=== PATIENT | male | born 1995 | race Caucasian/White ===

== ENCOUNTER 2016-07-15 06:30 | Emergency (ER) | payer OTHER ==
[2016-07-15 07:01] VITALS: BP 119/79; PULSE 65; TEMP 98.3; BMI 21.3
--- NOTE | 2016-07-15 07:22 | PDOC ---
History of Present Illness - General Chief Complaint: Pain, Acute Stated Complaint: KNEE PAIN Time Seen by Provider: 07/15/16 07:16 History Source: Patient Exam Limitations: No Limitations - History of Present Illness Initial Comments: 07/15/16 07:22 CHIEF COMPLAINT: Knee pain HISTORY OF PRESENT ILLNESS: This is an otherwise healthy 21 year old male who presents with right knee pain after "banging" his knee into a plastic structure when getting out of his car today. REVIEW OF SYSTEMS: GENERAL/CONSTITUTIONAL: No fever or chills. No weakness. No weight change. HEAD, EYES, EARS, NOSE AND THROAT: No change in vision. No ear pain or discharge. No sore throat. CARDIOVASCULAR: No chest pain or palpitations. RESPIRATORY: No cough, wheezing, or shortness of breath. GASTROINTESTINAL: No nausea, vomiting, diarrhea or constipation. GENITOURINARY: No dysuria, frequency, or change in urination. MUSCULOSKELETAL: See HPI. SKIN: No rash or easy bruising. NEUROLOGIC: No headache, vertigo, loss of consciousness, or loss of sensation. PSYCHIATRIC: No depression or anxiety. ENDOCRINE: No increased thirst. No abnormal weight change. HEMATOLOGIC/LYMPHATIC: No anemia, easy bleeding, or history of blood clots. ALLERGIC/IMMUNOLOGIC: No hives or skin allergy. No latex allergy. PHYSICAL EXAM: GENERAL: The patient is awake, alert, and fully oriented, in no acute distress. HEAD: Normal with no signs of trauma. ENT: Pupils equal, round and reactive to light, extraocular movements intact, sclera anicteric, conjunctiva clear. Neck supple. LUNGS: Clear to auscultation bilaterally. Normal excursion. No respiratory distress or use of accessory muscles. CV: RRR, S1/S2, no MRG. Cap refill < 2 sec. ABDOMEN: Soft, non-distended, non-tender. EXTREMITIES: Tenderness to right lateral knee- unable to extend completely, able to flex to 90. Unable to bear full weight. NEUROLOGICAL: Normal speech, normal gait. CN II-XII grossly intact. PSYCH: Normal mood, normal affect. SKIN: Warm, dry, normal turgor, no rashes or lesions noted. Past History - Past Medical History Allergies/Adverse Reactions: Allergies Allergy/AdvReac Type Severity Reaction Status Date / Time No Known Allergies Allergy Verified 07/15/16 07:01 Home Medications: Ambulatory Orders Naproxen [Naprosyn -] 500 mg PO BID #14 tablet 07/15/16 Tramadol HCl [Ultram] 50 mg PO HS PRN #5 tablet MDD 1 07/15/16 Asthma: Yes - Immunization History Immunization Up to Date: No - Psycho/Social/Smoking Cessation Hx Anxiety: No Suicidal Ideation: No Smoking History: Former smoker Have you smoked in the past 12 months: Yes Number of Cigarettes Smoked Daily: 2 If you are a former smoker, when did you quit?: 3 months Information on smoking cessation initiated: Yes 'Breaking Loose' booklet given: 03/30/14 Hx Alcohol Use: No Drug/Substance Use Hx: No Substance Use Type: Marijuana *Physical Exam - Vital Signs Last Vital Signs Temp Pulse Resp BP Pulse Ox 98.3 F 65 16 119/79 100 07/15/16 06:55 07/15/16 06:55 07/15/16 06:55 07/15/16 06:55 07/15/16 06:55 ED Treatment Course - RADIOLOGY Radiology Studies Ordered: Category Date Time Status KNEE 3 POS-RIGHT [RAD] Stat Radiology 07/15/16 07:21 Ordered Medical Decision Making - Medical Decision Making 07/15/16 08:56 A/P: 21 year old male with knee injury; limited ROM and weight-bearing. -Toradol 30mg IM for pain -CXR: no fracture or subluxation noted -Knee brace and crutches given -Ortho referral made -RICE therapy reviewed *DC/Admit/Observation/Transfer Diagnosis at time of Disposition: Right knee sprain Qualifiers: Encounter type: initial encounter Involved ligament of knee: unspecified ligament Qualified Code(s): S83.91XA - Sprain of unspecified site of right knee , initial encounter - Discharge Dispostion Disposition: HOME Condition at time of disposition: Fair Decision to Admit order Date/Time: 07/15/16 08:07 - Prescriptions Prescriptions: Naproxen [Naprosyn -] 500 mg PO BID #14 tablet Tramadol HCl [Ultram] 50 mg PO HS PRN #5 tablet MDD 1 PRN Reason: Severe Pain - Referrals Referrals: Vidal Mallory MD [Staff Physician] - 14 days (Orthopedics: follow up if symptoms persist) - Patient Instructions Printed Discharge Instructions: DI for Knee Sprain Additional Instructions: -Rest and apply ice for 15 minutes at a time 5 times daily -Wear the knee brace and use the crutches supplied to limit weight-bearing -Take Naproxen as prescribed and Tramadol at night for severe pain -Follow up with an orthopedist for further evaluation if not improving
[2016-07-15] MEDS ORDERED: KETOROLAC TROMETHAMINE 30 MG/1 ML VIAL IM ONE (08:04)
[2016-07-15] MEDS ORDERED: KETOROLAC TROMETHAMINE 30 MG/1 ML VIAL ONE (08:19)
== END 2016-07-15 08:24 | disposition home or self-care (01) ==
LOC: JER 06:30
PROC: 3E0233Z Introduction of Anti-inflammatory into Muscle, Percutaneous Approach (ICD-10-PCS; principal; 2016-07-15)
PROC: 2W3LX3Z Immobilization of Right Lower Extremity using Brace (ICD-10-PCS; 2016-07-15)
DX: S83.8X1A Sprain of other specified parts of right knee, initial encounter (principal); W22.8XXA Striking against or struck by other objects, initial encounter; V48.4XXA Person boarding or alighting a car injured in noncollision transport accident, initial encounter; Y92.414 Local residential or business street as the place of occurrence of the external cause; Y93.89 Activity, other specified
CPT/HCPCS: 29530; 73562-TC-RT; 96372; 99282-25

== ENCOUNTER 2017-06-26 11:12 | Emergency (ER) | payer OTHER ==
[2017-06-26 11:26] VITALS: BP 112/75; PULSE 82; TEMP 97.9; BMI 24.4
--- NOTE | 2017-06-26 11:28 | PDOC ---
History of Present Illness <Nadeem Obregon - Last Filed: 06/26/17 12:16> - History of Present Illness Initial Comments: 06/26/17 11:56 Mr. Craft is a 22 yo male w/ no pmh who presents complaining of right testicular pain since he woke up this morning. He reports after waking up he urinated at which time he experienced burning as well as noticed tenderness to his right testicle. He denies any prior surgeries or medical problems of the groin and was born with completely normal testicles as far as he knows. The patient denies chest pain, shortness of breath, headache and dizziness. Denies fever, chills, nausea, vomit, diarrhea and constipation. Denies frequency , urgency and hematuria. Allergies: NKDA <Conrado Estrada - Last Filed: 06/26/17 13:36> - General Chief Complaint: Pain, Acute Stated Complaint: PELVIC PAIN Time Seen by Provider: 06/26/17 11:28 Past History <Nadeem Obregon - Last Filed: 06/26/17 12:16> - Past Medical History Asthma: Yes COPD: No - Immunization History Immunization Up to Date: No - Suicide/Smoking/Psychosocial Hx Smoking History: Former smoker Have you smoked in the past 12 months: Yes Number of Cigarettes Smoked Daily: 2 If you are a former smoker, when did you quit?: 3 months Information on smoking cessation initiated: Yes 'Breaking Loose' booklet given: 06/26/17 Hx Alcohol Use: No Drug/Substance Use Hx: Yes Substance Use Type: Marijuana <Conrado Estrada - Last Filed: 06/26/17 13:36> - Past Medical History Allergies/Adverse Reactions: Allergies Allergy/AdvReac Type Severity Reaction Status Date / Time No Known Allergies Allergy Verified 06/26/17 11:22 Home Medications: Ambulatory Orders Naproxen [Naprosyn -] 500 mg PO BID #14 tablet 07/15/16 Tramadol HCl [Ultram] 50 mg PO HS PRN #5 tablet MDD 1 07/15/16 Review of Systems - Review of Systems Comments:: 06/26/17 12:01 GENERAL/CONSTITUTIONAL: No fever or chills. No weakness. HEAD, EYES, EARS, NOSE AND THROAT: No change in vision. No ear pain or discharge. No sore throat. CARDIOVASCULAR: No chest pain or shortness of breath RESPIRATORY: No cough, wheezing, or hemoptysis. GASTROINTESTINAL: No nausea, vomiting, diarrhea or constipation. GENITOURINARY: +Right testicular pain with dysuria as described. No frequency, or change in urination. MUSCULOSKELETAL: No joint or muscle swelling or pain. No neck or back pain. SKIN: No rash NEUROLOGIC: No headache, vertigo, loss of consciousness, or change in strength/ sensation. ENDOCRINE: No increased thirst. No abnormal weight change HEMATOLOGIC/LYMPHATIC: No anemia, easy bleeding, or history of blood clots. ALLERGIC/IMMUNOLOGIC: No hives or skin allergy. <Conrado Estrada - Last Filed: 06/26/17 13:36> *Physical Exam - Vital Signs Last Vital Signs Temp Pulse Resp BP Pulse Ox 97.9 F 82 18 112/75 99 06/26/17 11:22 06/26/17 11:22 06/26/17 11:22 06/26/17 11:22 06/26/17 11:22 <Nadeem Obregon - Last Filed: 06/26/17 12:16> - Vital Signs Last Vital Signs Temp Pulse Resp BP Pulse Ox 97.9 F 82 18 112/75 99 06/26/17 11:22 06/26/17 11:22 06/26/17 11:22 06/26/17 11:22 06/26/17 11:22 - Physical Exam Comments: 06/26/17 12:02 GENERAL: Awake, alert, and fully oriented, in no acute distress HEAD: No signs of trauma, normocephalic, atraumatic EYES: PERRLA, EOMI, sclera anicteric, conjunctiva clear ENT: Auricles normal inspection, hearing grossly normal, nares patent, oropharynx clear without exudates. Moist mucosa NECK: Normal ROM, supple, no lymphadenopathy, JVD, or masses LUNGS: No distress, speaks full sentences, clear to auscultation bilaterally HEART: Regular rate and rhythm, normal S1 and S2, no murmurs, rubs or gallops, peripheral pulses normal and equal bilaterally. ABDOMEN: Soft, nontender, normoactive bowel sounds. No guarding, no rebound. No masses EXTREMITIES: Normal inspection, Normal range of motion, no edema. No clubbing or cyanosis. NEUROLOGICAL: Cranial nerves II through XII grossly intact. Normal speech, normal gait, no focal sensorimotor deficits SKIN: Warm, Dry, normal turgor, no rashes or lesions noted. : Right testicle noted to have transverse lie and be elevated in comparison with left. Cremasteric reflex noted on left side. Initially absent on right; small motion visible after rotation of testicle in "open book" fashion. Patient reports some alleviation of pain with this movement as well. <Conrado Estrada - Last Filed: 06/26/17 13:36> ED Treatment Course - LABORATORY CBC & Chemistry Diagram: 06/26/17 13:10 06/26/17 13:10 <Conrado Estrada - Last Filed: 06/26/17 13:36> Medical Decision Making - Medical Decision Making 06/26/17 11:[address] James at 11:40, awaiting callback. 06/26/17 12:[address] James again at 11:55, awaiting callback. 06/26/17 12:[address] James regarding this patient. <Nadeem Obregon - Last Filed: 06/26/17 12:16> - Medical Decision Making 06/26/17 12:20 Mr. Craft is a 22 yo male w/ pmh as described who presents for evaluation of torsed testicle. Attempted manual reduction with some relief from symptoms. Patient sent to US for evaluation. Pre-op labs ordered. Consulted Dr. James for evaluation. 06/26/17 13:25 Scrotal US revealed no current evidence of torsion after detorsing efforts. Urology updated - will see patient on outpatient basis. App[facility] Patient verbalized agreement with plan and that he will follow-up. 06/26/17 13:35 Discharging to home. <Conrado Estrada - Last Filed: 06/26/17 13:36> *DC/Admit/Observation/Transfer <Nadeem Obregon - Last Filed: 06/26/17 12:16> <Conrado Estrada - Last Filed: 06/26/17 13:36> Diagnosis at time of Disposition: Testicular torsion - Discharge Dispostion Disposition: HOME - Referrals Referrals: Massimo James MD [Staff Physician] - - Patient Instructions Printed Discharge Instructions: Testicular Torsion Additional Instructions: Please follow-up as discussed at urology appointment tomorrow at [address] at 1pm. Return to ER immediately if any return of pain, fever, swelling , or difficulty urinating.
--- NOTE | 2017-06-26 12:01 | PDOC ---
Attending Attestation - Resident Resident Name: Conrado Estrada - ED Attending Attestation I have performed the following: I have examined & evaluated the patient, The case was reviewed & discussed with the resident, I agree w/resident's findings & plan, Exceptions are as noted - Medical Decision Making 06/26/17 11:35 22-year-old male with no significant past medical or surgical history presents the emergency department with sudden onset right testicular pain that woke him up from sleep. Vitals unremarkable. Exam of the right testicle with horizontal elevated lie, negative cremasteric reflex, and tender right testicle. Manual detorsion was performed by , pt reports improvement in pain but still has persistent pain. Now has mild cremasterics reflex. Urology has been consulted, we are waiting a callback. In the meantime patient has been walked over to scrotal ultrasound. When he returns we'll obtain blood work and give pain control. <Willow Marques - Last Filed: 06/26/17 11:55> - HPI HPI: 06/26/17 15:00 The patient is a 22 year old male with no significant PMH who presents to the emergency department with a sudden onset right testicle swelling and pain which woke him up from sleep approximately 2 hours prior to arrival. The patient reports being in his usual state of health prior to his right testicle swelling. The patient denies any recent trauma. He denies any previous symptoms prior to this morning. He denies any penile or testicular surgeries. Denies urinary symptoms of dysuria, hematuria, frequency. Allergies: NKA - Physicial Exam PE: 06/26/17 15:00 GENERAL: Awake, alert, and fully oriented, in no acute distress HEAD: No signs of trauma EYES: PERRLA, EOMI, sclera anicteric, conjunctiva clear ENT: Auricles normal inspection, hearing grossly normal, nares patent, oropharynx clear without exudates. Moist mucosa NECK: Normal ROM, supple, no lymphadenopathy, JVD, or masses LUNGS: Breath sounds equal, clear to auscultation bilaterally. No wheezes, and no crackles HEART: Regular rate and rhythm, normal S1 and S2, no murmurs, rubs or gallops ABDOMEN: Soft, nontender, normoactive bowel sounds. No guarding, no rebound. No masses : R testical with horizontal lie, elevated, initially with negative cremasteric relfex, after manual detorsion, +cremasteric reflex and imrpovement in pain. EXTREMITIES: Normal range of motion, no edema. No clubbing or cyanosis. No cords , erythema, or tenderness BACK: No midline spinal tenderness in cervical/thoracic/lumbar region NEUROLOGICAL: Normal speech, cranial nerves intact, negative pronator drift, 5/ 5 strength in all 4 extremities, normal sensation to light touch in all 4 extremities, normal cerebellar exam, normal gait, normal reflexes and tone SKIN: Warm, Dry, normal turgor, no rashes or lesions noted. - Medical Decision Making 06/26/17 11:[address] James at 11:40, awaiting callback. 06/26/17 12:[address] James again at 11:55, awaiting callback. 06/26/17 12:16 Dr. Estrada discussed case with Dr. James regarding this patient. <Nadeem Obregon - Last Filed: 06/26/17 15:00>
[2017-06-26 13:35] LABS: BASO % 0.6 % (0-2.0); EOS % 2.9 % (0-4.5); HEMATOCRIT 36.9 % (35.4-49); HEMOGLOBIN 12.8 GM/dL (11.7-16.9); LYMPH % 12.9 % (8-40); MCH 33.5 pg (25.7-33.7); MCHC 34.7 g/dl (32.0-35.9); MEAN CELL VOLUME 96.5 fl (80-96); MEAN PLT VOLUME 7.5 fl (7.5-11.1); MONO % 6.9 % (3.8-10.2); NEUT % 76.7 % (42.8-82.8); PLATELET COUNT 218 K/MM3 (134-434); RBC 3.82 M/mm3 (4.00-5.60); RDW 12.2 % (11.9-15.9); WHITE BLOOD COUNT 10.1 K/mm3 (4.0-10.0)
[2017-06-26 13:47] LABS: INR 0.95 (0.82-1.09); PROTHROMBIN TIME (PATIENT) 10.7 SEC (9.98-11.88)
[2017-06-26 13:59] LABS: ALBUMIN 3.6 g/dl (3.4-5.0); ANION GAP 8 (8-16); BLOOD UREA NITROGEN 11 mg/dL (7-18); CALCIUM 9.3 mg/dL (8.5-10.1); CHLORIDE 107 mmol/L (98-107); CO2 26 mmol/L (21-32); CREATININE 0.7 mg/dL (0.7-1.3); GLUCOSE,RANDOM 107 mg/dL (74-106); POTASSIUM 4.4 mmol/L (3.5-5.1); SGOT/AST 13 U/L (15-37); SGPT/ALT 27 U/L (12-78); SODIUM 141 mmol/L (136-145)
[2017-06-26 14:01] LABS: ALK PHOS 80 U/L (45-117); BILIRUBIN,TOTAL 0.4 mg/dL (0.2-1.0); TOT PROT 6.7 g/dl (6.4-8.2)
[2017-06-26 14:17] LABS: URINE APPEARANCE CLOUDY; URINE BILIRUBIN NEGATIVE (NEGATIVE); URINE BLOOD NEGATIVE (NEGATIVE); URINE COLOR YELLOW; URINE GLUCOSE (UA) NEGATIVE (NEGATIVE); URINE KETONE NEGATIVE (NEGATIVE); URINE LEUK ESTERASE NEGATIVE (NEGATIVE); URINE NITRITE NEGATIVE (NEGATIVE); URINE PROTEIN NEGATIVE (NEGATIVE); URINE UROBILINOGEN NEGATIVE mg/dL (0.2-1.0)
== END 2017-06-26 14:09 | disposition home or self-care (01) ==
LOC: JER 11:12
DX: N44.00 Torsion of testis, unspecified (principal)
CPT/HCPCS: 36415; 76870-TC; 80053; 81003; 83605; 85025; 85610; 86850; 86900; 86901; 87491; 87591; 99281-25

== ENCOUNTER 2018-03-17 20:13 | Emergency (ER) | payer OTHER ==
[2018-03-17 20:51] VITALS: BP 130/84; PULSE 95; TEMP 99.8; BMI 27.7
--- NOTE | 2018-03-17 20:59 | PDOC ---
Rapid Medical Evaluation Chief Complaint: Pain, Acute Time Seen by Provider: 03/17/18 20:56 Medical Evaluation: Allergies Allergy/AdvReac Type Severity Reaction Status Date / Time No Known Allergies Allergy Verified 06/26/17 11:22 Vital Signs Temp Pulse Resp BP Pulse Ox 99.8 F H 95 H 16 130/84 96 03/17/18 20:49 03/17/18 20:49 03/17/18 20:49 03/17/18 20:49 03/17/18 20:49 03/17/18 20:56 Patient c/o: low back pain and headache since this am, no other complaints Patient on brief exam: vss, no vertebral or cva tenderness Patient ordered for: none The patient will proceed to the ED Discharge Disposition - Diagnosis Low back pain - Referrals - Patient Instructions - Post Discharge Activity
[2018-03-17] MEDS ORDERED: ACETAMINOPHEN 500 MG TABLET (FP) PO ONE (21:54)
[2018-03-17] MEDS ORDERED: ACETAMINOPHEN 1000 MG/100 ML VIAL (NON FORMULARY) IVPB ONE (21:59)
[2018-03-17] MEDS ORDERED: SODIUM CHLORIDE 0.9% 500 ML INFUS.BAG IV ONE (21:59)
--- NOTE | 2018-03-17 22:01 | PDOC ---
History of Present Illness - General Chief Complaint: Pain, Acute Stated Complaint: PAIN Time Seen by Provider: 03/17/18 20:56 - History of Present Illness Initial Comments: 03/17/18 21:59 23-year-old male with abdominal pain low-grade fever and back pain times one day he also complains of bilateral styes on his eyes. Past History - Past Medical History Allergies/Adverse Reactions: Allergies Allergy/AdvReac Type Severity Reaction Status Date / Time No Known Allergies Allergy Verified 06/26/17 11:22 Home Medications: Ambulatory Orders NK [No Known Home Medication] 03/17/18 Asthma: Yes COPD: No - Immunization History Immunization Up to Date: No - Suicide/Smoking/Psychosocial Hx Smoking History: Never smoked Have you smoked in the past 12 months: No Number of Cigarettes Smoked Daily: 2 If you are a former smoker, when did you quit?: 3 months Information on smoking cessation initiated: No 'Breaking Loose' booklet given: 06/26/17 Hx Alcohol Use: No Drug/Substance Use Hx: No Substance Use Type: Marijuana Review of Systems - Review of Systems Constitutional: Yes: Chills, Fever, Malaise, Night Sweats HEENTM: Yes: See HPI, Eye Pain ABD/GI: Yes: Nausea Musculoskeletal: Yes: Back Pain *Physical Exam - Vital Signs Last Vital Signs Temp Pulse Resp BP Pulse Ox 99.8 F H 95 H 16 130/84 96 03/17/18 20:49 03/17/18 20:49 03/17/18 20:49 03/17/18 20:49 03/17/18 20:49 - Physical Exam Comments: 03/17/18 22:00 HEAD: NC/AT EYES: Conjuntiva clear Ears: Canals and TM's normal NOSE: No d/c THROAT: Moist mucous membrances, oral pharanx clear, uvula midline NECK: Supple without adenopathy CARDIAC: S1 S2 LUNGS: CTA Full and Equal breath sounds ABDOMEN: Right lower quadrant tenderness with rebound and guarding MS: Full ROM in all joints without edema NEUROLOGIC: No gross sensory or motor deficits, NVID SKIN: Normal color and temperature no lesions or rashes Moderate Sedation - Procedure Monitoring Vital Signs: Procedure Monitoring Vital Signs Temperature 99.8 F H 03/17/18 20:49 Pulse Rate 95 H 03/17/18 20:49 Respiratory Rate 16 03/17/18 20:49 Blood Pressure 130/84 03/17/18 20:49 O2 Sat by Pulse Oximetry (%) 96 03/17/18 20:49 Medical Decision Making - Medical Decision Making 03/17/18 22:00 Will get IV laboratory work and give IV fluids and Tylenol transfer to main ER *DC/Admit/Observation/Transfer Diagnosis at time of Disposition: Low back pain, Abdominal pain - Referrals - Patient Instructions - Post Discharge Activity
[2018-03-17 22:17] LABS: URINE APPEARANCE CLEAR; URINE BILIRUBIN NEGATIVE (<2.0 mg/dL); URINE COLOR YELLOW; URINE GLUCOSE (UA) NEGATIVE (NEGATIVE); URINE KETONE 2+ (NEGATIVE); URINE LEUK ESTERASE NEGATIVE (NEGATIVE); URINE NITRITE NEGATIVE (NEGATIVE); URINE PROTEIN NEGATIVE (NEGATIVE); URINE UROBILINOGEN 4.0 E.U/dl mg/dL (0.2-1.0)
[2018-03-17] MEDS ORDERED: ACETAMINOPHEN INJECTION 100 ML IVPB ONE (22:25)
[2018-03-17 22:28] LABS: EOS % 0.5 % (0-4.5); HEMATOCRIT 43.1 % (35.4-49); HEMOGLOBIN 15.6 GM/dL (11.7-16.9); LYMPH % 7.9 % (8-40); MCH 33.7 pg (25.7-33.7); MCHC 36.2 g/dl (32.0-35.9); MEAN CELL VOLUME 93.2 fl (80-96); MEAN PLT VOLUME 8.4 fl (7.5-11.1); MONO % 7.9 % (3.8-10.2); NEUT % 82.7 % (42.8-82.8); PLATELET COUNT 209 K/MM3 (134-434); RBC 4.62 M/mm3 (4.00-5.60); RDW 11.8 % (11.9-15.9); WHITE BLOOD COUNT 8.1 K/mm3 (4.0-10.0)
--- NOTE | 2018-03-17 22:29 | PDOC ---
*Physical Exam - Vital Signs Last Vital Signs Temp Pulse Resp BP Pulse Ox 99.8 F H 95 H 16 130/84 96 03/17/18 20:49 03/17/18 20:49 03/17/18 20:49 03/17/18 20:49 03/17/18 20:49 ED Treatment Course - LABORATORY CBC & Chemistry Diagram: 03/17/18 22:07 03/17/18 22:07 - ADDITIONAL ORDERS Additional order review: Laboratory Results 03/17/18 22:07 Urine Color Yellow Urine Appearance Clear Urine pH 7.0 Ur Specific Kinde 1.026 Urine Protein Negative Urine Glucose (UA) Negative Urine Ketones 2+ H Urine Blood Negative Urine Nitrite Negative Urine Bilirubin Negative Urine Urobilinogen 4.0 e.u/dl Ur Leukocyte Esterase Negative - RADIOLOGY Radiology Studies Ordered: Category Date Time Status ABDOMEN & PELVIS CT WITH CONTR [CT] Stat CT Scan 03/17/18 22:28 Ordered Medical Decision Making - Medical Decision Making 03/18/18 00:34 CTAP mesenteric lymph nodes. will give supportive care *DC/Admit/Observation/Transfer Diagnosis at time of Disposition: Mesenteric adenitis Low back pain Qualifiers: Chronicity: acute Back pain laterality: right Sciatica presence: without sciatica Qualified Code(s): M54.5 - Low back pain Abdominal pain Qualifiers: Abdominal location: right lower quadrant Qualified Code(s): R10.31 - Right lower quadrant pain Stye Qualifiers: Laterality: unspecified laterality Qualified Code(s): H00.019 - Hordeolum externum unspecified eye, unspecified eyelid - Discharge Dispostion Disposition: HOME - Prescriptions Prescriptions: Erythromycin 0.5% Eye Ointment [Erythromycin 0.5% Eye Ointment -] 1 applic OP BID #1 tube Ibuprofen 600 mg PO QID PRN #10 tablet PRN Reason: Pain - Referrals - Patient Instructions Printed Discharge Instructions: DI for Abdominal Pain-Adult Additional Instructions: drink plenty of fluids you may take ibuprofen for pain. follow up with your doctor as soon as possible. - Post Discharge Activity Forms/Work/School Notes: Back to Work
[2018-03-17 22:54] LABS: ALBUMIN 4.3 g/dl (3.4-5.0); ALK PHOS 117 U/L (45-117); ANION GAP 10 MMOL/L (8-16); BILIRUBIN,TOTAL 0.5 mg/dL (0.2-1); BLOOD UREA NITROGEN 11 mg/dL (7-18); CALCIUM 9.1 mg/dL (8.5-10.1); CHLORIDE 103 mmol/L (98-107); CO2 21 mmol/L (21-32); CREATININE 0.9 mg/dL (0.55-1.3); GLUCOSE,RANDOM 88 mg/dL (74-106); LIPASE 129 U/L (73-393); POTASSIUM 3.8 mmol/L (3.5-5.1); SGOT/AST 22 U/L (15-37); SGPT/ALT 34 U/L (13-61); SODIUM 134 mmol/L (136-145)
[2018-03-18] MEDS ORDERED: KETOROLAC TROMETHAMINE 30 MG/1 ML VIAL IVPUSH ONE (00:33)
== END 2018-03-18 01:15 | disposition home or self-care (01) ==
LOC: JER 20:13 → JERFT 20:13 → JER 03-18 01:15
PROC: 3E033NZ Introduction of Analgesics, Hypnotics, Sedatives into Peripheral Vein, Percutaneous Approach (ICD-10-PCS; principal; 2018-03-17)
DX: I88.0 Nonspecific mesenteric lymphadenitis (principal); H00.019 Hordeolum externum unspecified eye, unspecified eyelid
CPT/HCPCS: 36415; 74177-TC; 80053; 81003; 83690; 85025; 96374; 99281-25; J0131

== ENCOUNTER 2021-06-06 19:59 | Emergency (ER) | payer OTHER ==
[2021-06-06 20:17] VITALS: BP 108/56; PULSE 65; TEMP 97.9; BMI 23.5
== END 2021-06-06 21:13 | disposition home or self-care (01) ==
LOC: JERFT 19:59
DX: M79.605 Pain in left leg (principal)
CPT/HCPCS: 99281-25